=== PATIENT | male | born 1955 | race Caucasian/White ===

== ENCOUNTER 2020-04-01 07:33 | Day surgery (SDC) | payer OTHER ==
[~2020-04-01 07:33] MED LIST: Ak-Dilate OPHTHALMIC*** 1.065 ML, Cyclogyl 1% OPHTH SOL 5 ML 1.065 ML, GATIFLOXACIN 0.5... OP ONE; BETADINE 5% OPHTHALMIC 30 ML OP ONE; Lactated Ringers 1,000 ML IV SCH; NON-FORMULARY ITEM OP ONE; TETRACAINE 0.5% STERI-UNIT SOL OP ONE; cefUROXime sodium 0.005 GM in Sodium Chloride Flush 30 ML*** 0.5 ML IJ SCH
[2020-04-01] MEDS ORDERED: Lactated Ringers 1,000 ML IV ONE (07:51)
[2020-04-01] MEDS ORDERED: ACETAZOLAMIDE 250 MG TABLET PO ONE (09:00)
[2020-04-01] MEDS ORDERED: Zofran 4 MG/2 ML VIAL IV PRN (09:00)
[2020-04-01] MEDS ORDERED: Epinephrine Preservative Free 1 MG/ML INTRAOP ONE (10:00)
[2020-04-01] MEDS ORDERED: DIPRIVAN 200 MG/20 ML IV ONE ×2 (10:08→10:15)
[2020-04-01] MEDS ORDERED: Xylocaine-Mpf 2% 5 Ml Vial ONE (10:20)
[2020-04-01 11:18] VITALS: O2SAT 98
[2020-04-01 11:43] VITALS: BP 131/68; PULSE 72
== END 2020-04-01 11:35 | disposition home or self-care (01) ==
LOC: SDC 07:33
PROVIDERS: ATTEND Ophthalmology
DX: H25.812 Combined forms of age-related cataract, left eye (principal); E11.9 Type 2 diabetes mellitus without complications; I10 Essential (primary) hypertension; Z79.899 Other long term (current) drug therapy
CPT/HCPCS: 82947; C1780; J0171; J2704; A9270-GY